=== PATIENT | female | born 1995 | race Caucasian/White ===

== ENCOUNTER 2016-07-18 18:31 | Emergency (ER) | payer OTHER ==
[2016-07-18 18:45] VITALS: RESP 18
--- NOTE | 2016-07-18 19:00 | EDPHY ---
H & P Stated Complaint: Sent by [facility] [place], continued abdominal pain, continued weight loss since 05/13 HPI/ROS: CHIEF COMPLAINT: Abdominal pain HISTORY OF PRESENT ILLNESS: The patient is a 20 year old female who presents to the emergency department with lower abdominal cramping as well as ongoing diarrhea. The patient has had persistent nonbloody diarrhea since April. She has about 4-5 episodes per day with intermittently has solid stools. Over the past 2 months she has lost 20 pounds. She usually has associated cramping with diarrhea that is moderate in nature. However today she woke up with more severe abdominal pain that has since remained constant. She was seen at Urgent Care today and had lab work and ultrasound done. She has a GI consult scheduled for next week, but couldn't wait due to severity of pain today. She took Prilosec at 5:30 pm and Zantac this morning. REVIEW OF SYSTEMS: A ten point review of systems was performed and is negative with the exception of the items mentioned in the HPI. Source: Patient, Family, Old records Exam Limitations: No limitations - Personal History LMP (Females 10-55): Over 28 Days Ago Current Tetanus/Diphtheria Vaccine: Yes Current Tetanus Diphtheria and Acellular Pertussis (TDAP): Yes - Medical/Surgical History Hx Asthma: No Hx Chronic Respiratory Disease: No Hx Diabetes: No Hx Cardiac Disease: No Hx Renal Disease: No Hx Cirrhosis: No Hx Alcoholism: No Hx HIV/AIDS: No Hx Splenectomy or Spleen Trauma: No Other PMH: None - Social History Smoking Status: Never smoked Additional Social History: Graduated from college last year. 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 - Physical Exam Exam: General Appearance: Alert. Vital signs reviewed. HR 106 at triage.. Eyes: Pupils equal and round, no conjunctival injection, no discharge. Anicteric. ENT, Mouth: Mucous membranes are moist, no oropharyngeal erythema or edema. Neck: No lymphadenopathy, supple. Respiratory: Lungs are clear to auscultation; no wheezes, rales, or rhonchi. Cardiovascular: Mildly tachycardic at time of my exam; no murmur, rub, or gallop. Gastrointestinal: Abdomen is soft with mild tenderness in both lower quadrants , no guarding, no masses or organomegaly, bowel sounds normal. Skin: Warm and dry, no rashes on exposed skin, normal color. Back: Nontender to palpation over the thoracolumbar spine. No CVAT. Extremities: No lower extremity edema, no calf tenderness or swelling. Neurological: Alert and oriented. Moving all four extremities easily and equally. Psychiatric: Normal affect. Constitutional: Initial Vital Signs Temperature (C) 36.9 C 07/18/16 18:42 Heart Rate 106 H 07/18/16 18:42 Respiratory Rate 18 07/18/16 18:42 Blood Pressure 110/77 07/18/16 18:42 O2 Sat (%) 98 07/18/16 18:42 O2 Delivery Mode Room Air Allergies/Adverse Reactions: No Known Allergies Allergy (Unverified 07/18/16 18:42) Home Medications: Medication Instructions Recorded Hydrocodone/APAP 5/325 [[place] 1 - 2 tab PO Q4 PRN #10 tab 07/18/16 5/325 (RX)] Ondansetron Odt [Zofran Odt 4 mg 4 mg PO Q4 PRN #10 tab 07/18/16 (RX)] Medical Decision Making ED Course/Re-evaluation: IV was established, the patient received 1L normal saline and 4mg Zofran. I reviewed the patient's lab work and US from Urgent Care today. 2000: I reevaluated the patient and discussed findings. She continues to have pain. She received 50mcg Fentanyl IV for pain with subsequent pain relief. She has had laboratory and radiographic evaluation today with nothing to suggest appendicitis (no fever and nl WBC without focal RLQ tenderness), ovarian torsion, ovarian cyst, PID, or ectopic . I do not feel that these studies need to be repeated. She has an ongoing problem and understands that a diagnosis is unlikely to result from [facility]. She was unable to produce a stool sample but has a collection kit provided to her at [facility] [place] [facility]. Diagnostic possibilities concerning her diarrhea include Crohns, infectious colitis, and functional diarrhea. I am suggesting that she try to move up her appointment with GI. We reviewed the danger signs that should prompt immediate re-evaluation. She was re-hydrated with two liters of IV NS and received some pain relief with fentanyl. She is given RX for small quantity of [place] but thinks that she is unlikely to use it. - Data Points Medications Given: Discontinued Medications Hydrocodone Bitart/Acetaminophen ([place] 5/325mg Prepack#6) 1 btl TAKEHOME EDNOW ONE Stop: 07/18/16 21:02 Last Admin: 07/18/16 21:02 Dose: 1 btl Fentanyl (Sublimaze) 50 mcg IVP EDNOW ONE Stop: 07/18/16 20:07 Last Admin: 07/18/16 20:19 Dose: 50 mcg Sodium Chloride (Ns) 1,000 mls @ 0 mls/hr IV ONCE ONE PRN Reason: Wide Open Stop: 07/18/16 19:20 Last Admin: 07/18/16 19:26 Dose: 1,000 mls Ondansetron HCl (Zofran) 4 mg IVP EDNOW ONE Stop: 07/18/16 19:20 Last Admin: 07/18/16 19:26 Dose: 4 mg Ondansetron HCl (Zofran Odt 4 Mg Prepack#2) 1 btl TAKEHOME EDNOW ONE Stop: 07/18/16 21:02 Last Admin: 07/18/16 21:10 Dose: 1 btl Departure - Departure Disposition: Home, Routine, Self-Care Clinical Impression: Diarrhea Qualifiers: Diarrhea type: unspecified type Qualified Code(s): R19.7 - Diarrhea, unspecified Abdominal pain Qualifiers: Abdominal location: lower abdomen, unspecified Qualified Code(s): R10.30 - Lower abdominal pain, unspecified Condition: Good Instructions: Hydrocodone/Acetaminophen (By mouth), Ondansetron (By mouth), Acute Diarrhea (ED), Abdominal Pain (ED) Additional Instructions: 1. Call GI of the [facility] tomorrow to discuss moving the appointment forward. 2. Take [place] as needed for severe pain. 3. Take Zofran as directed for nausea and vomiting. 4. Continue your Prilosec as prescribed. Adult Pain & Fever Control: We recommend Acetaminophen (Tylenol) and Ibuprofen (Motrin,Advil) for pain and fever control. When fever is high or pain severe, both drugs can be used at the same time, but at different intervals. Please note the time differences. Your dose is: Acetaminophen 450mg every 4 to 6 hours Ibuprofen 400mg every 4 hours with food Note: do not take Acetaminophen with Hydrocodone (Vicodin, Lortab) or Oycodone (Percocet). These medications also contain Acetaminophen. No more than 3000mg of Acetaminophen should be taken in 24 hours (for an adult). IF you take tylenol with Vicodin you should keep track of the tylenol doses that you are taking so that you don't exceed 3000 mg in 24 hours. If you develop new or concerning symptoms--fever, severe intractable pain, vomiting--please be re-evaluated. Referrals: Teena Hartman PA [Primary Care Provider] - As per Instructions Prescriptions: Hydrocodone/APAP 5/325 [[place] 5/325 (RX)] 1 - 2 tab PO Q4 PRN #10 tab PRN Reason: pain Ondansetron Odt [Zofran Odt 4 mg (RX)] 4 mg PO Q4 PRN #10 tab PRN Reason: nausea Report Scribed for: Danisha Reich Report Scribed by: Pili Beckham Date of Report: 07/18/16 Time of Report: 19:16 Physician Review and Approval Statement: 07/18/16 19:00 Portions of this note were transcribed by the medical education manager. I, Dr. Danisha Reich, personally performed the history, physical exam, and medical decision- making; and confirmed the accuracy of the information in the transcribed note.
[2016-07-18] MEDS ORDERED: ONDANSETRON 4 MG/2 ML VIAL IVP ONE (19:19)
[2016-07-18] MEDS ORDERED: NS 1,000 ML IV ONE (19:19)
[2016-07-18] MEDS ORDERED: fentaNYL 100 MCG/2 ML INJ IVP ONE (20:06)
[2016-07-18] MEDS ORDERED: HYDROCOD/APAP 5/325 PREPACK#6 BTL TAKEHOME ONE (21:01)
[2016-07-18] MEDS ORDERED: ONDANSETRON 4MG PREPACK#2 BTL TAKEHOME ONE (21:01)
[2016-07-18 21:25] VITALS: BP 110/64; PULSE 103; TEMP 98.8; O2SAT 99
== END 2016-07-18 21:23 | disposition home or self-care (01) ==
DX: R10.30 Lower abdominal pain, unspecified (principal); R19.7 Diarrhea, unspecified
CPT/HCPCS: 96374; J2405; J3010

== ENCOUNTER → 2016-07-18 | Outpatient (CLI) | payer OTHER | LOC: BMCIMAGING 12:44 | PROVIDERS: ATTEND Family Medicine | DX: K80.20 Calculus of gallbladder without cholecystitis without obstruction (principal); R10.84 Generalized abdominal pain; R19.7 Diarrhea, unspecified ==

== ENCOUNTER → 2016-11-08 | Outpatient (CLI) | payer OTHER | LOC: FIMAGING 08:53 | PROVIDERS: ATTEND Internal Medicine | DX: R63.0 Anorexia (principal); K82.8 Other specified diseases of gallbladder | CPT/HCPCS: 78227; A9537 ==

== ENCOUNTER 2016-12-26 05:45 | Day surgery (SDC) | payer OTHER ==
[2016-12-26] MEDS ORDERED: cefOXitin SODIUM 2 GM in D5W 100 ML IV ONE (06:18)
[2016-12-26] MEDS ORDERED: LR 1,000 ML IV ONE (06:20)
[2016-12-26] MEDS ORDERED: LIDOCAINE 1% 2 ML INJ ID PRN (06:20)
[2016-12-26] MEDS ORDERED: fentaNYL 100 MCG/2 ML INJ ONE ×2 (06:53→08:06)
[2016-12-26] MEDS ORDERED: PROPOFOL/EMULSION 500 MG/50 ML BOTTLE IV ONE (06:53)
[2016-12-26] MEDS ORDERED: DEXAMETHASONE 4 MG/ML VIAL ONE ×2 (06:56)
[2016-12-26] MEDS ORDERED: ONDANSETRON 4 MG/2 ML VIAL ONE ×3 (06:56→08:39)
[2016-12-26] MEDS ORDERED: HEPARIN 1000 UNIT/1 ML MDV ONE (06:56)
[2016-12-26] MEDS ORDERED: BUPIVACAINE 0.5% 30 ML SDV ONE (06:56)
[2016-12-26] MEDS ORDERED: ROCURONIUM 50 MG/5 ML VIAL ONE (06:57)
[2016-12-26] MEDS ORDERED: SUGAMMADEX SODIUM 200 MG/2 ML VIAL IVP ONE (06:57)
[2016-12-26] MEDS ORDERED: LIDOCAINE 2% 100 MG/5 ML SYR ONE (06:57)
[2016-12-26] MEDS ORDERED: ceFAZolin 1 GM/5 ML SYR ONE (06:57)
[2016-12-26] MEDS ORDERED: NALOXONE HCL 0.4 MG/ML INJ IVP PRN (07:00)
[2016-12-26] MEDS ORDERED: MIDAZOLAM 2 MG/2 ML VIAL IVP ONE (07:00)
--- NOTE | 2016-12-26 07:20 | PDHPUP ---
History & Physical Update H&P update statement: This history and physical update is based on an assessment of the patient which was completed after admission or registration (within 24 hours), but prior to the surgery/procedure. H&P update: H&P reviewed & patient examined, no change in patient's condition since H&P completed
[2016-12-26] MEDS ORDERED: ONDANSETRON 4 MG/2 ML VIAL IVP PRN ×2 (08:07→08:26)
[2016-12-26] MEDS ORDERED: MEPERIDINE 25 MG/ML SYR IVP PRN (08:07)
[2016-12-26] MEDS ORDERED: ACETAMINOPHEN 500 MG TAB PO PRN (08:07)
[2016-12-26] MEDS ORDERED: LR 500 ML IV PRN (08:07)
[2016-12-26] MEDS ORDERED: HYDROmorphONE/DILAUDID 1 MG/ML SYR IVP PRN ×2 (08:07→08:26)
[2016-12-26] MEDS ORDERED: fentaNYL 100 MCG/2 ML INJ IVP PRN (08:07)
[2016-12-26] MEDS ORDERED: KETOROLAC 30 MG/1 ML SDV ONE ×2 (08:07)
[2016-12-26] MEDS ORDERED: OXYCODONE/APAP 5/325 TAB PO PRN (08:07)
--- NOTE | 2016-12-26 08:22 | POSTOPPROG ---
Post Op Note Date of Operation: 12/26/16 Surgeon: Chidi Lopez Anesthesiologist: [place] Anesthesia: GET(General Endotracheal) Pre-op Diagnosis: cholelithiasis and chronic cholecystitis Post-op Diagnosis: same Indication: pain and nausea Procedure: lap choley Findings: small stones, small ducts, [id number] to gb Inf/Abcess present in the surg proc area at time of surgery?: No Depth: Organ Space EBL: Minimal Complications: 0 Specimen(s): gallbladder
[2016-12-26] MEDS ORDERED: HYDROCODONE/APAP 5/325 TAB PO PRN (08:26)
[2016-12-26] MEDS ORDERED: D5W 1/2 NS W/ 20 KCl/L 1,000 ML IV SCH (08:30)
--- NOTE | 2016-12-26 08:44 | PDANEPAE ---
ANE Past Medical History - Cardiovascular History Hx Hypertension: No Hx Arrhythmias: Yes Hx Chest Pain: No Hx Coronary Artery / Peripheral Vascular Disease: No Hx CHF / Valvular Disease: No Hx Palpitations: No Cardiovascular History Comment: irregular ekg. rbbb. worked up by [facility] - Pulmonary History Hx COPD: No Hx Asthma/Reactive Airway Disease: No Hx Recent Upper Respiratory Infection: No Hx Oxygen in Use at Home: No Hx Sleep Apnea: No Sleep Apnea Screening Result - Last Documented: Negative - Neurologic History Hx Cerebrovascular Accident: No Hx Seizures: No Hx Dementia: No - Endocrine History Hx Diabetes: No - Renal History Hx Renal Disorders: No - Liver History Hx Hepatic Disorders: No - Neurological & Psychiatric Hx Hx Neurological and Psychiatric Disorders: No - Cancer History Hx Cancer: No - Congenital Disorder History Hx Congenital Disorders: No - GI History Hx Gastrointestinal Disorders: Yes Gastrointestinal History Comment: reflux. abd pain. diarrhea currently - Other Health History Other Health History: none - Chronic Pain History Chronic Pain: No - Surgical History Prior Surgeries: pe tubes as child. wisdom teeth removed. egd's ANE Review of Systems - Exercise capacity METS (RN): 4 METS - Systems Cardiac: Reports: other (Asymptomatic tiny PFO) ANE Patient History - Allergies Allergies/Adverse Reactions: No Known Allergies Allergy (Verified 12/22/16 12:33) - Home Medications Home Medications: Control Pill 12/22/16 [Last Taken 12/25/16 09:00] Nexium 24Hr 12/22/16 [Last Taken 12/26/16 00:30] - NPO status NPO Since - Liquids (Date): 12/25/16 NPO Since - Liquids (Time): 19:45 NPO Since - Solids (Date): 12/25/16 NPO Since - Solids (Time): 19:30 - Smoking Hx Smoking Status: Never smoked - Family Anes Hx Family Hx Anesthesia Complications: none ANE Labs/Vital Signs - Vital Signs Blood Pressure: 111/73 Heart Rate: 58 Respiratory Rate: 18 O2 Sat (%): 97 Height: 175.26 cm Weight: 56.699 kg ANE Physical Exam - Airway Neck exam: FROM Mallampati Score: Class 1 Mouth exam: normal dental/mouth exam - Pulmonary Pulmonary: no respiratory distress, no rales or rhonchi, clear to auscultation - Cardiovascular Cardiovascular: regular rate and rhythym, no murmur, rub, or gallop - ASA Status ASA Status: II ANE Anesthesia Plan Anesthesia Plan: general endotracheal anesthesia
--- NOTE | 2016-12-26 08:45 | POSTANESTH ---
Post Anesthetic Evaluation Cardiovascular Status: Normal, Stable, Similar to Pre-Op Cond Respiratory Status: Normal, Stable, Similar to Pre-op Cond. Level of Consciousness/Mental Status: Can Participate in Eval, Alert and Oriented Pain Control: Adequate, Prn Tx Ordered Nausea/Vomiting Control: Adequate, Prn Tx Ordered Complications Possibly Related to Anesthesia: None Noted
[2016-12-26] MEDS ORDERED: PROMETHAZINE HCL 25 MG/ML INJ ONE (08:52)
[2016-12-26] MEDS: PROMETHAZINE HCL 25 MG/ML INJ IVP PRN ×2 (08:55→09:26)
[2016-12-26 09:18] VITALS: TEMP 97
[2016-12-26] MEDS ORDERED: CITRIC ACID/SODIUM CITRATE 30 ML UDCUP PO ONE (09:46)
[2016-12-26 09:51] VITALS: RESP 13
[2016-12-26] MEDS ORDERED: CEFAZOLIN 1 GM/DEXTROSE/50 ML BAG IV ONE (09:56)
[2016-12-26 10:33] VITALS: BP 117/73; PULSE 61; O2SAT 99
[2016-12-26] MEDS ORDERED: KETOROLAC 15 MG/1 ML SDV IVP SCH (12:00)
--- NOTE | 2016-12-27 08:02 | GOP ---
[f rep st] OPERATIVE REPORT DATE OF OPERATION: 12/26/2016 SURGEON: Chidi Lopez MD TAKE AWAY WORKER: None. ANESTHESIOLOGIST: Dr. Barrientos. PREOPERATIVE DIAGNOSIS: Symptomatic cholelithiasis, cholecystitis. POSTOPERATIVE DIAGNOSIS: Symptomatic cholelithiasis, cholecystitis. PROCEDURE PERFORMED: Laparoscopic cholecystectomy. FINDINGS: Patient was found to have adhesions to the gallbladder. The gallbladder was soft. Stone s were present but small and ducts were small. ESTIMATED BLOOD LOSS: Minimal. DESCRIPTION OF PROCEDURE: Patient was taken to the operating room, where she received satisfactory general endotracheal anesthesia by Dr. Barrientos. She was prepped and draped in the usual sterile fashi on in the supine position. An infraumbilical incision was made. A Veress needle was inserted. Pneumoperitoneum was establishe d. Trocar was introduced. Laparoscope was introduced. Good visualization was obtained. Three oth er trocars were placed in the upper abdomen under direct vision. The gallbladder was elevated up. Adhesions were taken down. The cystic triangle was carefully exposed. The cystic duct was dissecte d free. Cystic artery was also dissected free. A good clear view was obtained. Both structures we re multiply hemoclipped and divided with care to avoid injury to the common bile duct. The peritone um of the gallbladder was incised. The gallbladder was dissected free from the bed and hepatic patric a and extracted through the upper midline port site. Hemostasis was assured. Trocars were removed under direct vision. Trocar sites were closed with 0 Vicryl for the fascia and 4-0 Monocryl subcuti cular stitch for the skin. All wounds were infiltrated with 0.5% Marcaine. She was taken to the re covery room in good condition. COMPLICATIONS: None. /[id number]/MODL
== END 2016-12-26 10:48 | disposition home or self-care (01) ==
LOC: FSGY 05:45 → UNDOADMOB 08:29 → FSGY 10:48
PROVIDERS: ATTEND Surgery
PROC: 0FT44ZZ Resection of Gallbladder, Percutaneous Endoscopic Approach (ICD-10-PCS; principal; 2016-12-26 07:15)
DX: K80.10 Calculus of gallbladder with chronic cholecystitis without obstruction (principal)
CPT/HCPCS: J0690; J0694; J1100; J1885; J2001; J2250; J2405; J2550; J2704; J3010

== ENCOUNTER 2016-12-28 11:19 | Inpatient (IN) | payer OTHER ==
[2016-12-28] MEDS ORDERED: NS 1,000 ML IV ONE (11:58)
[2016-12-28] MEDS ORDERED: HYDROmorphONE/DILAUDID 1 MG/ML SYR IVP ONE (11:58)
[2016-12-28] MEDS ORDERED: ONDANSETRON 4 MG/2 ML VIAL IVP ONE (11:58)
--- NOTE | 2016-12-28 12:01 | EDPHY ---
H & P Time Seen by Provider: 12/28/16 11:50 HPI/ROS: CHIEF COMPLAINT: Abdominal pain HISTORY OF PRESENT ILLNESS: Patient had cholecystectomy on December 26 and went home on Monday. She has been eating and drinking until this morning when she developed severe upper abdominal pain followed by nausea and vomiting. Does not radiate to the back. Not associated with diarrhea. Much worse with any movement or palpation of her belly. Symptoms severe and not helped by Maybell. REVIEW OF SYSTEMS: Eye: no change in vision ENT: no sore throat Cardiac: no chest pain or syncope Pulmonary: no cough or SOB Abdomen: HPI Musculoskeletal: no back pain Skin: No drainage or redness on the incisions Neuro: no headache Constitutional: no fever : no urinary symptoms A comprehensive 10 point review of systems is otherwise negative aside from elements mentioned in the history of present illness. PAST MEDICAL HISTORY: Cholecystectomy Social history: Here with her mother and a friend of the family General Appearance: Alert and conversant, cooperative. Eyes: No scleral icterus. ENT, Mouth: Slightly dry mucous membranes. Respiratory: Normal respiratory effort, breath sounds equal, lungs are clear to auscultation. Cardiovascular: Regular rate and rhythm. Gastrointestinal: Epigastric and right upper quadrant tenderness. Neurological: Alert and oriented x3. Normally conversant. Face symmetric, normal movement and sensation in all extremities. Skin: Steri-Strips in place, no redness or drainage from the wounds. Musculoskeletal: No peripheral edema and no joint swelling. Psychiatric: Not agitated. Emergency Department course/MDM: Dilaudid 1 mg IV, Zofran 4 mg IV, abdominal pelvis CT scanning to evaluate for possible postoperative complication. 1240: CT per Nirmala shows some free fluid and free air. Question dilated bile ducts. Otherwise normal postoperative. Discussed with Dr. Lopez and discussed with the patient and her mother. Given IV Toradol [address] Lopez request. HIDA scan ordered and admission to the hospital for pain control. Smoking Status: Never smoked Constitutional: Initial Vital Signs Temperature (C) 36.3 C 12/28/16 11:32 Heart Rate 69 12/28/16 11:32 Respiratory Rate 17 12/28/16 11:32 Blood Pressure 111/76 12/28/16 11:32 O2 Sat (%) 97 12/28/16 11:32 O2 Delivery Mode Room Air Allergies/Adverse Reactions: No Known Allergies Allergy (Verified 12/28/16 11:29) Home Medications: Medication Instructions Recorded Esomeprazole Magnesium [Nexium] 20 mg PO DAILY@0800 12/22/16 Levonorgestrel-Ethin Estradiol 1 each PO DAILY 12/22/16 [Quasense 0.15-0.03 mg Tablet] Hydrocodone/APAP 5/325 [[place]bell 0.5 tab PO DAILY PRN 12/28/16 5/325 (*)] Ondansetron Odt [Zofran Odt 4 mg 4 mg PO Q4 PRN 12/28/16 (*)] Simethicone [Gas-X] 125 mg PO DAILY 12/28/16 Medical Decision Making - Diagnostics Imaging Results: Imaging Impressions Abdomen CT 12/28/16 11:59 Impression: 1. Intra-abdominal free air and free fluid may well be postoperative. If there is clinical concern for a bile leak, then consider a nuclear medicine HIDA scan. 2. Proximal colonic constipation. 3. Distended urinary bladder. Results called and discussed with SAMUEL MCNEILL, at 12/28/2016 12:44 General information for patients regarding this examination can be found at [email or web address]. If you have questions or comments about this report, please contact me at (hospital) or [phone] (cell). Differential Diagnosis: Differential considered including but not limited to bile leak, abdominal abscess, postoperative bleeding, postoperative pain, intestinal perforation. Consult/Admit Bed Type: [place] [address] - Data Points Laboratory Results: Laboratory Results 12/28/16 11:47 12/28/16 11:47 12/28/16 12/28/16 12/28/16 11:57 11:47 11:47 WBC RBC Hgb POC Hgb 12.9 gm/dL gm/dL (12.6-16.3) Hct POC Hct 38 % % (38-47) MCV MCH MCHC RDW Plt Count MPV Neut % (Auto) Lymph % (Auto) Chaves % (Auto) Eos % (Auto) Baso % (Auto) Nucleat RBC Rel Count Absolute Neuts (auto) Absolute Lymphs (auto) Absolute Monos (auto) Absolute Eos (auto) Absolute Basos (auto) Absolute Nucleated RBC Immature Gran % Immature Gran # POC Sodium 142 mEq/L mEq/L (134-144) Sodium 142 mEq/L mEq/L (134-144) POC Potassium 3.6 mEq/L mEq/L (3.3-5.0) Potassium 3.8 mEq/L mEq/L (3.5-5.2) POC Chloride 104 mEq/L mEq/L (97-110) Chloride 108 mEq/L mEq/L (97-110) Carbon Dioxide 20 mEq/l L mEq/l (22-31) Anion Gap 14 mEq/L mEq/L (8-16) POC BUN 8 mg/dL mg/dL (7-23) BUN 9 mg/dL mg/dL (7-23) Creatinine 0.8 mg/dL mg/dL (0.6-1.0) POC Creatinine 0.8 mg/dL mg/dL (0.6-1.0) Estimated GFR > 60 Glucose 96 mg/dL mg/dL (70-100) POC Glucose 100 mg/dL mg/dL (70-100) Calcium 10.0 mg/dL mg/dL (8.5-10.4) Total Bilirubin 1.1 mg/dL mg/dL (0.1-1.4) Conjugated Bilirubin 0.5 mg/dL mg/dL (0.0-0.5) Unconjugated Bilirubin 0.6 mg/dL mg/dL (0.0-1.1) AST 283 IU/L H IU/L (14-46) ALT 310 IU/L H IU/L (9-52) Alkaline Phosphatase 95 IU/L IU/L (38-126) Total Protein 7.4 g/dL g/dL (6.3-8.2) Albumin 4.4 g/dL g/dL (3.5-5.0) Lipase 173.0 IU/L IU/L (23-300) Beta HCG, Qual NEGATIVE 12/28/16 11:47 WBC 9.13 10^3/uL 10^3/uL (3.80-9.50) RBC 4.66 10^6/uL 10^6/uL (4.18-5.33) Hgb 13.4 g/dL g/dL (12.6-16.3) POC Hgb Hct 40.4 % % (38.0-47.0) POC Hct MCV 86.7 fL fL (81.5-99.8) MCH 28.8 pg pg (27.9-34.1) MCHC 33.2 g/dL g/dL (32.4-36.7) RDW 11.9 % % (11.5-15.2) Plt Count 287 10^3/uL 10^3/uL (150-400) MPV 10.6 fL fL (8.7-11.7) Neut % (Auto) 76.9 % H % (39.3-74.2) Lymph % (Auto) 16.3 % % (15.0-45.0) Chaves % (Auto) 6.0 % % (4.5-13.0) Eos % (Auto) 0.1 % L % (0.6-7.6) Baso % (Auto) 0.4 % % (0.3-1.7) Nucleat RBC Rel Count 0.0 % % (0.0-0.2) Absolute Neuts (auto) 7.01 10^3/uL H 10^3/uL (1.70-6.50) Absolute Lymphs (auto) 1.49 10^3/uL 10^3/uL (1.00-3.00) Absolute Monos (auto) 0.55 10^3/uL 10^3/uL (0.30-0.80) Absolute Eos (auto) 0.01 10^3/uL L 10^3/uL (0.03-0.40) Absolute Basos (auto) 0.04 10^3/uL 10^3/uL (0.02-0.10) Absolute Nucleated RBC 0.00 10^3/uL 10^3/uL (0-0.01) Immature Gran % 0.3 % % (0.0-1.1) Immature Gran # 0.03 10^3/uL 10^3/uL (0.00-0.10) POC Sodium Sodium POC Potassium Potassium POC Chloride Chloride Carbon Dioxide Anion Gap POC BUN BUN Creatinine POC Creatinine Estimated GFR Glucose POC Glucose Calcium Total Bilirubin Conjugated Bilirubin Unconjugated Bilirubin AST ALT Alkaline Phosphatase Total Protein Albumin Lipase Beta HCG, Qual Medications Given: Discontinued Medications Hydromorphone HCl (Dilaudid) 1 mg IVP EDNOW ONE Stop: 12/28/16 11:59 Last Admin: 12/28/16 12:05 Dose: 1 mg Sodium Chloride (Ns) 1,000 mls @ 0 mls/hr IV EDNOW ONE; Wide Open PRN Reason: Protocol Stop: 12/28/16 11:59 Last Admin: 12/28/16 12:05 Dose: 1,000 mls Ketorolac Tromethamine (Toradol) 15 mg IVP EDNOW ONE Stop: 12/28/16 12:55 Last Admin: 12/28/16 13:10 Dose: 15 mg Ondansetron HCl (Zofran) 4 mg IVP EDNOW ONE Stop: 12/28/16 11:59 Last Admin: 12/28/16 12:06 Dose: 4 mg Point of Care Test Results: 12/28/16 11:57 POC Sodium 142 POC Potassium 3.6 POC Chloride 104 POC BUN 8 POC Creatinine 0.8 POC Glucose 100 Departure - Departure Disposition: [facility] Inpatient Acute Clinical Impression: Abdominal pain Qualifiers: Abdominal location: upper abdomen, unspecified Qualified Code(s): R10.10 - Upper abdominal pain, unspecified Condition: Good
[2016-12-28 12:03] LABS: % IMMATURE GRANULYOCYTES 0.3 % (0.0-1.1); ABSOLUTE IMMATURE GRANULOCYTES 0.03 10^3/uL (0.00-0.10); ADD DIFF? NO; ADD MORPH? NO; ADD SCAN? NO; ATYPICAL LYMPHOCYTE FLAG 10 (0-99); FRAGMENT RBC FLAG 0 (0-99); HEMATOCRIT 40.4 % (38.0-47.0); HEMOGLOBIN 13.4 g/dL (12.6-16.3); LEFT SHIFT FLG 0 (0-99); LIPEMIA HEMOLYSIS FLAG 80 (0-99); MEAN CELL HEMOGLOBIN 28.8 pg (27.9-34.1); MEAN CELL HEMOGLOBIN CONCENTR. 33.2 g/dL (32.4-36.7); MEAN CELL VOLUME 86.7 fL (81.5-99.8); MEAN PLATELET VOLUME 10.6 fL (8.7-11.7); PLATELET CLUMPS FLAG 10 (0-99); PLATELET COUNT 287 10^3/uL (150-400); RED BLOOD CELL COUNT 4.66 10^6/uL (4.18-5.33); RED CELL DISTRIBUTION WIDTH 11.9 % (11.5-15.2)
[2016-12-28] MEDS ORDERED: IOPAMIDOL (ISOVUE-300) 100 ML BTL ONE (12:08)
[2016-12-28 12:21] LABS: ALANINE AMINOTRANSFERASE 310 IU/L (9-52); ALBUMIN 4.4 g/dL (3.5-5.0); ALKALINE PHOSPHATASE 95 IU/L (38-126); ANION GAP 14 mEq/L (8-16); ASPARTATE AMINOTRANSFERASE 283 IU/L (14-46); BILIRUBIN,TOTAL 1.1 mg/dL (0.1-1.4); BILIRUBIN-CONJUGATED 0.5 mg/dL (0.0-0.5); BILIRUBIN-UNCONJUGATED 0.6 mg/dL (0.0-1.1); CARBON DIOXIDE 20 mEq/l (22-31); CHLORIDE 108 mEq/L (97-110); CREATININE 0.8 mg/dL (0.6-1.0); GLOMERULAR FILTRATION RATE > 60; GLUCOSE 96 mg/dL (70-100); POTASSIUM 3.8 mEq/L (3.5-5.2); SODIUM 142 mEq/L (134-144); TOTAL PROTEIN 7.4 g/dL (6.3-8.2)
[2016-12-28] MEDS ORDERED: KETOROLAC 30 MG/1 ML SDV IVP ONE (12:54)
[2016-12-28] MEDS ORDERED: HYDROCODONE/APAP 5/325 TAB PO PRN (13:58)
[2016-12-28] MEDS: NS W/ 20 KCl/L 1,000 ML IV SCH (14:44)
--- NOTE | 2016-12-28 15:02 | GHP ---
[f rep st] HISTORY AND PHYSICAL DATE OF ADMISSION: 12/28/2016 CHIEF COMPLAINT: Epigastric abdominal pain with nausea. HISTORY OF PRESENT ILLNESS: The patient is a healthy young 21-year-old woman, aside from some reflu x complaints that she controls with Nexium, who is postoperative day 2 from an uneventful laparoscop ic cholecystectomy for cholelithiasis and biliary dyskinesia with an ejection fraction of 16%. Post operatively, she had some nausea which caused her to avoid use of narcotic pain medicines and Advil. She has used a little Tylenol and half doses of her Harts. She has had epigastric abdominal pain since the surgery which has since moved down to her pelvis. She was eating simple things like rose hies and toast. She has retched, but not actually vomited. Her last normal bowel movement was the morning of her surgery, and she reports that as being slightly small. She denies fevers, chills or night sweats. She comes to the ER today because her pain seems to be worsening. Since being in the emergency department, she has had a CT scan of her abdomen and pelvis which shows some intraabdominal free air and free fluid consistent with her postoperative state. She was found to have some colonic constipation and a distended bladder. Her mom says she has been urinating wit hout a problem. Labs show a normal white count and no signs of anemia with elevated liver function tests. PAST MEDICAL HISTORY: Reflux, cholelithiasis and biliary dyskinesia as described above. MEDICINES: Nexium and recent use of Zofran. ALLERGIES: No known drug allergies. SOCIAL HISTORY: She is a nonsmoker. She lives in [place]. She has minimal alcohol intake. She wo rks as a mortgage lender and she is accompanied by her mom who does research analysis. FAMILY HISTORY: Noncontributory. REVIEW OF SYSTEMS: Negative aside from listed in HPI, a 10-point review is done. PHYSICAL EXAM: GENERAL: A 21-year-old female, alert and oriented x3, in no acute distress. HEENT: Normocephalic, atraumatic. No scleral icterus. CHEST: Clear to auscultation bilaterally with no accessary muscle use or work of breathing. CARDIAC: Regular rate and rhythm. ABDOMEN: Soft. In cisions are clean, dry, and intact. Positive bowel sounds. Tenderness in the right upper and lower quadrants. No rebound or guarding. EXTREMITIES: Warm, dry without edema. IMPRESSION: This is a 21-year-old female with abdominal pain and nausea post uneventful laparoscopi c cholecystectomy. Rule out biliary leak. Rule out constipation. PLAN: Plan will be to admit the patient for observation and supportive care. Will make her n.p.o. for now. We have ordered a HIDA scan. I have also ordered some pain medicines and antiemetics for supportive care. If her HIDA scan is negative, then we will likely start with some cathartics. If it is abnormal, she may need GI consult and/or ERCP. Will discuss with Dr. Lopez who will also see the patient today and is aware of her presence in the emergency department. /[id number]/MODL
[2016-12-28 18:51] LABS: AMYLASE 46 IU/L (30-110)
[2016-12-28] MEDS: HYDROmorphONE/DILAUDID 1 MG/ML SYR IVP PRN ×2 (19:01→20:45)
[2016-12-28] MEDS: ONDANSETRON 4 MG/2 ML VIAL IVP PRN (19:01)
[2016-12-28] MEDS ORDERED: HYDROmorphONE/DILAUDID 6 MG/30 ML PCA IV PRN (19:23)
[2016-12-28] MEDS ORDERED: NALOXONE HCL 0.4 MG/ML INJ IVP PRN (19:23)
--- NOTE | 2016-12-28 19:30 | SOAPPROG ---
SOAP Progress Note Assessment/Plan: Assessment: 24 HRS SP LAP CHANTELL/ CO RUQ PAIN/ AFEBRILE/ NONICTERIC/ABDOMEN IS SOFT WITH BOWEL SOUNDS, NONDISTENDED LFTs ELEVATED BUT BILI AND ALKPHOS OK HIDA SUGGESTS SMALL LEAK Plan:RECHECK LABS/ GI CONSULT/ POSSIBLE ERCP 12/28/16 19:27 Objective: Vital Signs Temp Pulse Resp BP Pulse Ox 36.7 C 51 L 18 129/94 H 97 12/28/16 14:19 12/28/16 14:19 12/28/16 14:19 12/28/16 14:19 12/28/16 14:19 12/27/16 12/28/16 12/29/16 05:59 05:59 05:59 Intake Total 1000 Output Total 1000 Balance 0 ICD10 Worksheet Patient Problems: Problems Problem Status Onset Abdominal pain Acute Diarrhea Acute
[2016-12-28] MEDS: ERTAPENEM 1 GM in NS 100 ML IV SCH (20:13)
[2016-12-28] MEDS: KETOROLAC 15 MG/1 ML SDV IVP SCH (20:21)
[2016-12-28] MEDS: ONDANSETRON DISINTEGRATING 4 MG TAB PO PRN (20:46)
[2016-12-28] MEDS ORDERED: POLYETHYLENE GLYCOL 3350 17 GM PKT PO PRN (21:00)
[2016-12-28] MEDS: DOCUSATE SODIUM 100 MG CAP PO SCH (22:10)
[2016-12-28] MEDS: PANTOPRAZOLE SODIUM 40 MG in NS 100 ML IV SCH (22:10)
[2016-12-29] MEDS: ONDANSETRON 4 MG/2 ML VIAL IVP PRN ×4 (00:23→19:38)
[2016-12-29] MEDS: KETOROLAC 15 MG/1 ML SDV IVP SCH ×4 (01:44→19:38)
[2016-12-29 04:49] LABS: % IMMATURE GRANULYOCYTES 0.6 % (0.0-1.1); ABSOLUTE IMMATURE GRANULOCYTES 0.05 10^3/uL (0.00-0.10); ADD DIFF? NO; ADD MORPH? NO; ADD SCAN? NO; ATYPICAL LYMPHOCYTE FLAG 10 (0-99); FRAGMENT RBC FLAG 0 (0-99); HEMATOCRIT 33.5 % (38.0-47.0); HEMOGLOBIN 11.1 g/dL (12.6-16.3); LEFT SHIFT FLG 0 (0-99); LIPEMIA HEMOLYSIS FLAG 80 (0-99); MEAN CELL HEMOGLOBIN 28.8 pg (27.9-34.1); MEAN CELL HEMOGLOBIN CONCENTR. 33.1 g/dL (32.4-36.7); MEAN CELL VOLUME 86.8 fL (81.5-99.8); MEAN PLATELET VOLUME 10.5 fL (8.7-11.7); PLATELET CLUMPS FLAG 0 (0-99); PLATELET COUNT 222 10^3/uL (150-400); RED BLOOD CELL COUNT 3.86 10^6/uL (4.18-5.33); RED CELL DISTRIBUTION WIDTH 11.9 % (11.5-15.2)
[2016-12-29 05:06] LABS: ALANINE AMINOTRANSFERASE 207 IU/L (9-52); ALBUMIN 3.2 g/dL (3.5-5.0); ALKALINE PHOSPHATASE 74 IU/L (38-126); AMYLASE 36 IU/L (30-110); ASPARTATE AMINOTRANSFERASE 110 IU/L (14-46); BILIRUBIN,TOTAL 0.9 mg/dL (0.1-1.4); BILIRUBIN-CONJUGATED 0.3 mg/dL (0.0-0.5); BILIRUBIN-UNCONJUGATED 0.6 mg/dL (0.0-1.1); TOTAL PROTEIN 5.6 g/dL (6.3-8.2)
[2016-12-29] MEDS: ONDANSETRON DISINTEGRATING 4 MG TAB PO PRN ×2 (05:22→22:15)
[2016-12-29] MEDS: HYDROmorphONE/DILAUDID 1 MG/ML SYR IVP PRN ×5 (07:47→22:41)
[2016-12-29] MEDS: LEVONORGESTREL ETHIN ESTRADIOL PO SCH (08:35)
[2016-12-29] MEDS: DOCUSATE SODIUM 100 MG CAP PO SCH ×2 (08:36→19:39)
[2016-12-29] MEDS: PANTOPRAZOLE SODIUM 40 MG in NS 100 ML IV SCH (08:36)
--- NOTE | 2016-12-29 08:54 | SOAPPROG ---
SOSANDRA Progress Note Assessment/Plan: Assessment: Nancy is a 21yo F who is s/p uneventful lap susan for cholelithiasis and biliary dyskinesia with EF of 16% on 12/26/16 who returned to the ED yesterday 12/28/16 complaining of worsening pain. HIDA scan suggested small bowel leak AST and ALT are downtrending. Alk phos and bili remain within the normal range. Remains afebrile. Plan: NPO except meds and ice chips MRCP today to rule out choledocholithiasis Appreciate G.I Follow ALT and AST tomorrow Continue pain control Continue bowel regimen S: Nancy experienced an episode of sharp epigastric pain this morning that was relieved with dilaudid. She states that she is experiencing abdominal pain in all quadrants but is worse in the LUQ and epigastric areas. Denies passing flatus or having a bowel movement. Attempting to finish miralax. O: Drowsy, nontoxic appearing female RRR CTAB Hypoactive BS present Soft, nondistended abdomen with tenderness to palpation in all abdominal quadrants. No guarding or rigidity 3 lap incisions are covered with steri strips and are C/D/I 12/29/16 12:28 Objective: Vital Signs Temp Pulse Resp BP Pulse Ox 36.9 C 70 12 112/73 97 12/29/16 04:00 12/29/16 04:00 12/29/16 04:00 12/29/16 04:00 12/29/16 04:00 Laboratory Results 12/29/16 04:39 12/28/16 12/29/16 12/30/16 05:59 05:59 05:59 Intake Total 3238 Output Total 7370 400 Balance 978 -400 ICD10 Worksheet Patient Problems: Problems Problem Status Onset Abdominal pain Acute Diarrhea Acute
[2016-12-29] MEDS ORDERED: LEVONORGESTREL ETHIN ESTRADIOL PO SCH (09:00)
[2016-12-29] MEDS: SIMETHICONE 80 MG TAB CHEW PO SCH (09:18)
[2016-12-29] MEDS: ERTAPENEM 1 GM in NS 100 ML IV SCH (09:18)
--- NOTE | 2016-12-29 11:45 | GCON ---
[f rep st] CONSULTATION GI CONSULTATION DATE OF CONSULTATION: 12/29/2016 REASON FOR CONSULTATION: Status post laparoscopic cholecystectomy with postoperative pain. Rule out choledocholithiasis or bile duct leak. HISTORY OF PRESENT ILLNESS: The patient is a 21-year-old female, who was admitted to the hospital yesterday with epigastric abdominal pain and nausea. Two days postop from an uneventful laparoscopic cholecystectomy for cholelithiasis and biliary dyskinesia with an ejection fraction of 16%. The patient's postoperative course prior to this admission was uneventful with the exception of some mild nausea, which was thought related to narcotic use. She was readmitted to the hospital last night after acute onset of epigastric abdominal pain that moved down into her pelvis, associated with nausea and retching. She denied any jaundice, acholic stools, or dark urine. In the emergency room last night she did have a CT scan performed, which revealed intraabdominal free air, and free fluid consistent with recent cholecystectomy and laparoscopy, and proximal colonic constipation, as well as a distended urinary bladder. HIDA scan was performed thereafter, which revealed a "wisp" of radioactive tracer seen centrally, which was indeterminate for small-bowel activity versus peritoneal activity. The patient has been given Colace and MiraLAX for constipation, pantoprazole IV, and Dilaudid IV for pain on admission. She continues to have some epigastric discomfort, as well as some right upper quadrant discomfort that was more severe this morning, but has waned since that time. I was asked to see the patient by Dr. Lopez for evaluation of her pain, and for consideration of possible ERCP. The patient's mother was in the room at the time of my interview and exam, and does have a medical background, had multiple questions, which were answered today the patient's. MEDICATIONS: Prior to admission included: Nexium 40 mg daily and p.r.n. Zofran. ALLERGIES: She has no known drug allergies. PAST MEDICAL HISTORY: Significant for gastroesophageal reflux, and recent cholecystectomy for cholelithiasis, and dysfunctional gallbladder disease. SOCIAL HISTORY: She is a nonsmoker. She minimally consumes alcohol. She lives in [place]. She works as a mortgage operations manager. Her mother is a medical research clinical research analyst. Her mother lives in [place] as well her. FAMILY HISTORY: Negative for peptic ulcer disease, GI malignancies, or gallbladder disease. REVIEW OF SYSTEMS: Other than as noted in the HPI were negative for comprehensive review of systems on my examination today. PHYSICAL EXAMINATION: VITAL SIGNS: Temperature is 36.4 Celsius, pulse 65 regular, blood pressure 131/84, respiratory rate was 18, O2 saturation 98% on room air. GENERAL: Slight built female looking mildly uncomfortable in bed. INTEGUMENT: Showed no jaundice, rash, or edema. HEENT: Head atraumatic, normocephalic. Pupils equal, round, reactive to light. EOM were intact. Nares patent. Mucous membranes moist. Dentition is good. NECK: Supple. Trachea midline. PULMONARY: Lungs clear to percussion and auscultation. CARDIOVASCULAR: Regular rhythm, rate. Normal S1, S2 without murmur. Peripheral pulses strong bilaterally. No pedal edema. GI/ABDOMEN: Healing right upper quadrant trocar incision site. Tenderness in right upper quadrant with mild guarding. Positive bowel sounds. No palpable liver edge or spleen tip. No fluid wave noted. No rebound noted. EXTREMITIES: Without deformity. NEURO: The patient is alert and oriented x3. There are no focal neurologic deficits. LABS: White count 8.76, hemoglobin 11.1, hematocrit 33.5, platelets 222,008. LFTs EEG yesterday at noon showed a bilirubin of 1.1, AST of 283, ALT of 310, alkaline phosphatase of 95. Today's LFTs show a bilirubin of 0.9, AST of 110, ALT of 207, alkaline phosphatase 74. Her lipase was normal at 173. Beta hCG is negative. IMPRESSION: A 21-year-old female 3 days postoperative from uncomplicated laparoscopic cholecystectomy, now with right upper quadrant abdominal pain with questionable bile leak (equivocal findings on HIDA scan) and constipation noted on CT. I doubt that this is choledocholithiasis or significant biliary leak. RECOMMENDATIONS: 1. Would obtain an MRCP today to rule out choledocholithiasis or biliary obstruction. 2. Management of constipation with MiraLAX and Colace. 3. N.p.o. except for medications and ice chips. 4. We will perform ERCP if definitive evidence of choledocholithiasis or common bile duct obstruction found on MRCP. /[id number]/MODL MTDD
[2016-12-29] MEDS: NS W/ 20 KCl/L 1,000 ML IV SCH ×2 (12:55→22:04)
[2016-12-29] MEDS ORDERED: GADOBUTROL 10 ML VIAL IVP ONE (16:05)
[2016-12-29] MEDS ORDERED: MAG HYDROX/AL HYDROX/SIMETH 30 ML UDCUP PO PRN (17:57)
[2016-12-29] MEDS: FAMOTIDINE 20 MG TAB PO PRN (22:52)
[2016-12-30] MEDS: HYDROmorphONE/DILAUDID 1 MG/ML SYR IVP PRN ×4 (00:09→12:05)
[2016-12-30] MEDS: KETOROLAC 15 MG/1 ML SDV IVP SCH ×4 (01:02→21:54)
[2016-12-30] MEDS: ONDANSETRON 4 MG/2 ML VIAL IVP PRN ×2 (04:58→13:17)
[2016-12-30 05:18] LABS: % IMMATURE GRANULYOCYTES 0.3 % (0.0-1.1); ABSOLUTE IMMATURE GRANULOCYTES 0.03 10^3/uL (0.00-0.10); ADD DIFF? NO; ADD MORPH? NO; ADD SCAN? NO; ATYPICAL LYMPHOCYTE FLAG 0 (0-99); FRAGMENT RBC FLAG 0 (0-99); HEMATOCRIT 35.4 % (38.0-47.0); HEMOGLOBIN 11.9 g/dL (12.6-16.3); LEFT SHIFT FLG 0 (0-99); LIPEMIA HEMOLYSIS FLAG 80 (0-99); MEAN CELL HEMOGLOBIN CONCENTR. 33.6 g/dL (32.4-36.7); MEAN CELL VOLUME 86.1 fL (81.5-99.8); MEAN PLATELET VOLUME 10.4 fL (8.7-11.7); PLATELET CLUMPS FLAG 0 (0-99); PLATELET COUNT 258 10^3/uL (150-400); RED BLOOD CELL COUNT 4.11 10^6/uL (4.18-5.33); RED CELL DISTRIBUTION WIDTH 11.9 % (11.5-15.2)
[2016-12-30 05:36] LABS: ALANINE AMINOTRANSFERASE 183 IU/L (9-52); ALBUMIN 3.5 g/dL (3.5-5.0); ALKALINE PHOSPHATASE 113 IU/L (38-126); ANION GAP 12 mEq/L (8-16); ASPARTATE AMINOTRANSFERASE 69 IU/L (14-46); BILIRUBIN,TOTAL 1.3 mg/dL (0.1-1.4); CALCIUM 9.3 mg/dL (8.5-10.4); CARBON DIOXIDE 20 mEq/l (22-31); CHLORIDE 102 mEq/L (97-110); CREATININE 0.7 mg/dL (0.6-1.0); GLOMERULAR FILTRATION RATE > 60; GLUCOSE 75 mg/dL (70-100); POTASSIUM 4.4 mEq/L (3.5-5.2); SODIUM 134 mEq/L (134-144); TOTAL PROTEIN 6.2 g/dL (6.3-8.2)
[2016-12-30] MEDS: NS W/ 20 KCl/L 1,000 ML IV SCH ×2 (08:18→18:08)
[2016-12-30] MEDS: PANTOPRAZOLE SODIUM 40 MG TAB PO SCH (08:21)
[2016-12-30] MEDS: DOCUSATE SODIUM 100 MG CAP PO SCH ×2 (08:21→21:55)
[2016-12-30] MEDS: FAMOTIDINE 20 MG TAB PO PRN ×2 (08:29→21:54)
[2016-12-30] MEDS: SIMETHICONE 80 MG TAB CHEW PO SCH (08:29)
[2016-12-30] MEDS: ERTAPENEM 1 GM in NS 100 ML IV SCH (08:29)
[2016-12-30] MEDS: LEVONORGESTREL ETHIN ESTRADIOL PO SCH (08:30)
--- NOTE | 2016-12-30 11:02 | SOAPPROG ---
SOAP Progress Note Assessment/Plan: Assessment: Nancy is a 21yo F who is s/p uneventful lap susan for cholelithiasis and biliary dyskinesia with EF of 16% on 12/26/16 who returned to the ED 12/28/16 complaining of worsening pain. MRI demonstrated free fluid in the abdomen and free intraperitoneal air possibly secondary to the surgery or the bile leak suggested by the HIDA scan. AST and ALT are downtrending. Alk phos and bili remain within the normal range. Remains afebrile. Plan: Advance to light diet today Appreciate G.I Continue pain control Continue bowel regimen Dispo: to home when tolerating diet and moving bowels S: Nancy is feeling better today, she says her abdominal pain has lessened and is being well controlled. Passing flatus no bowel movement. Ready to try a light diet. O: Drowsy, nontoxic appearing female RRR CTAB BS present Soft, nondistended abdomen with tenderness to palpation in all abdominal quadrants, worse in the RUQ. No guarding or rigidity 3 lap incisions are covered with steri strips and are C/D/I 12/30/16 11:02 Objective: Vital Signs Temp Pulse Resp BP Pulse Ox 37.0 C 76 20 113/78 97 12/30/16 08:00 12/30/16 08:00 12/30/16 08:00 12/30/16 08:00 12/30/16 08:00 Laboratory Results 12/30/16 04:40 12/30/16 04:40 12/29/16 12/30/16 12/31/16 05:59 05:59 05:59 Intake Total 2361 Output Total 850 1400 Balance 1511 -1400 ICD10 Worksheet Patient Problems: Problems Problem Status Onset Abdominal pain Acute Diarrhea Acute
--- NOTE | 2016-12-30 11:45 | SOAPPROG ---
SOAP Progress Note Assessment/Plan: Assessment: 1. Post-op abdominal pain; likely secondary to combo of some free air in peritoneal space and minor post-op bile leak from liver surface (I do not think that we are dealing with true bile duct leak and no evidence of CBD stone on MRCP). 2. Constipation. Plan: 1. Laxatives PRN. 2. Pain control and ADMIR. 3. I will sign off today. Jacobo Pompa M.D. 12/30/16 11:42 Subjective: CC: Post-op abdominal pain. Interval HPI: Some improvement in abdominal pain today. No BM. Objective: Vital Signs Temp Pulse Resp BP Pulse Ox 37.0 C 76 20 113/78 97 12/30/16 08:00 12/30/16 08:00 12/30/16 08:00 12/30/16 08:00 12/30/16 08:00 Laboratory Results 12/30/16 04:40 12/30/16 04:40 12/29/16 12/30/16 12/31/16 05:59 05:59 05:59 Intake Total 2361 Output Total 850 1400 Balance 1511 -1400 Laboratory Tests 12/28/16 12/29/16 12/30/16 11:47 04:39 04:40 Total Bilirubin 1.1 0.9 1.3 AST 283 H 110 H 69 H ALT 310 H 207 H 183 H Alkaline Phosphatase 95 74 113 Physical Exam - Physical Exam General Appearance: WD/WN, alert, mild distress Respiratory: lungs clear, normal breath sounds Cardiac/Chest: normal peripheral pulses, regular rate, rhythm Abdomen: normal bowel sounds, soft (tender to palpation in RUQ.) Neuro/Psych: alert, normal mood/affect ICD10 Worksheet Patient Problems: Problems Problem Status Onset Abdominal pain Acute Diarrhea Acute
[2016-12-30] MEDS ORDERED: SIMETHICONE 80 MG TAB CHEW PO PRN (16:58)
--- NOTE | 2016-12-30 20:52 | SOAPPROG ---
SOAP Progress Note Assessment/Plan: Assessment: 22 HRS SP LAP CHANTELL/ CO RUQ PAIN/ AFEBRILE/ NONICTERIC/ABDOMEN IS SOFT WITH BOWEL SOUNDS, NONDISTENDED LFTs ELEVATED BUT BILI AND ALKPHOS OK HIDA SUGGESTS SMALL LEAK Plan:RECHECK LABS/ GI CONSULT/ POSSIBLE ERCP 12/28/16 19:27 12/30/16 20:51 CONTINUES TO IMPROVE/ AFEBRILE/ LFTs IMPROVING/ WOUNDS OK/ ABD SOFT, MINIMALLY TENDER, +BS HOME IN AM Objective: Vital Signs Temp Pulse Resp BP Pulse Ox 37 C 79 16 112/73 99 12/30/16 19:48 12/30/16 19:48 12/30/16 19:48 12/30/16 19:48 12/30/16 19:48 Laboratory Results 12/30/16 04:40 12/30/16 04:40 12/29/16 12/30/16 12/31/16 05:59 05:59 05:59 Intake Total 2361 Output Total 850 3100 Balance 1511 -3100 ICD10 Worksheet Patient Problems: Problems Problem Status Onset Abdominal pain Acute Diarrhea Acute
[2016-12-31] MEDS: KETOROLAC 15 MG/1 ML SDV IVP SCH ×2 (02:39→07:30)
[2016-12-31 04:09] VITALS: BP 111/69; O2SAT 97
[2016-12-31 08:21] VITALS: PULSE 54; RESP 14; TEMP 97.9
[2016-12-31] MEDS: LEVONORGESTREL ETHIN ESTRADIOL PO SCH (08:57)
[2016-12-31] MEDS: ERTAPENEM 1 GM in NS 100 ML IV SCH (08:59)
[2016-12-31] MEDS: DOCUSATE SODIUM 100 MG CAP PO SCH (08:59)
[2016-12-31] MEDS: SIMETHICONE 80 MG TAB CHEW PO SCH (09:00)
[2016-12-31] MEDS: PANTOPRAZOLE SODIUM 40 MG TAB PO SCH (09:01)
[2016-12-31] MEDS: ONDANSETRON DISINTEGRATING 4 MG TAB PO PRN (09:18)
--- NOTE | 2016-12-31 11:31 | SOAPPROG ---
SOAP Progress Note Assessment/Plan: Assessment: 21yo F s/p lap susan for cholelithiasis and biliary dyskinesia. Readmitted with pain, found to have small bile leak LFTs improved No evidence of CBD stone on MRCP Pain and nausea better controlled this morning. Passing flatus and having BMs Tolerating regular diet Dispo: home today. F/u 7-10d. call with any worsening symptoms, questions or concerns. avoid heavy lifting for 2 weeks S: Feeling better today. Had a BM this morning. tolerating light diet without worsening symptoms. mild nausea controlled with zofran. O: laying in bed, comfortable, NAD No increased WOB, CTAB RRR +BS, soft, nondistended, min tender. Incisions CDI without e/o infection Objective: Vital Signs Temp Pulse Resp BP Pulse Ox 36.6 C 54 L 14 111/69 97 12/31/16 08:00 12/31/16 08:00 12/31/16 08:00 12/31/16 08:00 12/31/16 08:00 Laboratory Results 12/30/16 04:40 12/30/16 04:40 12/30/16 12/31/16 01/01/17 05:59 05:59 05:59 Intake Total 2361 500 110 Output Total 850 3800 Balance 1511 -3300 110 ICD10 Worksheet Patient Problems: Problems Problem Status Onset Abdominal pain Acute Diarrhea Acute
--- NOTE | 2016-12-31 12:38 | GDS ---
[f rep st] DISCHARGE SUMMARY ADMITTING DIAGNOSIS: Epigastric pain status post laparoscopic cholecystectomy. SECONDARY DIAGNOSES: Cholelithiasis and biliary dyskinesia, reflux. REASON FOR ADMISSION: The patient is a 21-year-old woman who recently underwent uncomplicated lapar oscopic cholecystectomy for cholelithiasis and biliary dyskinesia with an EF of 16%. She was discha rged after surgery and returned to the emergency room complaining of uncontrolled epigastric abdomin al pain. She was admitted for pain control, observation, and further workup. HOSPITAL COURSE: Upon admission, she had an abdominal CT which showed constipation but no evidence of free fluid or air or abscess. She then had a HIDA scan performed which showed possible small sonja e leak from the liver bed. Then she had an MRCP which revealed free fluid and air consistent with p ostop changes. No evidence of choledochal stone. She was evaluated by Gastroenterology, who felt t hat the bile leak was minimal and would resolve spontaneously. Her symptoms did improve through her hospital stay. By hospital day #3, her pain was controlled with Toradol. She was tolerating a reg ular diet without worsening symptoms and her nausea was controlled with oral pain medication. She w as ambulating independently, and had full return of bowel function. DISCHARGE CONDITION: She is being discharged home in stable condition. Pain is controlled. Nausea is controlled. She has full return of bowel function and ambulating independently. DISCHARGE MEDICATIONS: She was sent home with prescription for Levaquin, OxyIR as well as Zofran. Please see EMR for further details on her home medications. DISCHARGE INSTRUCTIONS AND FOLLOWUP: She will follow up with Dr. Chidi Lopez in 7-10 days. She w ill call sooner with any worsening symptoms, questions, or concerns. She will follow a low-fat diet for 2 weeks. She will avoid heavy lifting, pushing, or pulling greater than 15 pounds for 2 weeks. /[id number]/MODL
== END 2016-12-31 12:04 | disposition home or self-care (01) | DRG 392 ==
LOC: F3E 14:26 → OBSVTOIN 12-29 12:51
PROVIDERS: ADMIT Surgery; ATTEND Surgery
DX: R10.13 Epigastric pain (principal); K91.89 Other postprocedural complications and disorders of digestive system; K83.8 Other specified diseases of biliary tract; K59.00 Constipation, unspecified; K21.9 Gastro-esophageal reflux disease without esophagitis; Z90.49 Acquired absence of other specified parts of digestive tract
CPT/HCPCS: 82947-QW; 96374; A9537; A9585; G0378; J1170; J1335; J1885; J2405; Q9967

== ENCOUNTER 2017-01-01 17:15 | Inpatient (IN) | payer OTHER ==
[2017-01-01] MEDS ORDERED: KETOROLAC 30 MG/1 ML SDV IVP ONE (17:34)
[2017-01-01] MEDS ORDERED: HYDROmorphONE/DILAUDID 1 MG/ML SYR IVP ONE (17:34)
[2017-01-01] MEDS ORDERED: NS 1,000 ML IV ONE ×2 (17:34)
--- NOTE | 2017-01-01 17:39 | EDPHY ---
H & P Time Seen by Provider: 01/01/17 17:22 HPI/ROS: CHIEF COMPLAINT: Severe abdominal pain HISTORY OF PRESENT ILLNESS: Patient was discharged yesterday after being rehospitalized after symptoms following cholecystectomy. She had laparoscopic surgery on December 26 for biliary dyskinesia by Dr. Chidi Lopez. She was discharged yesterday and had abdominal CT which showed constipation but no evidence of abscess. She had a HIDA scan which showed possible small bile leak but an MRCP which did not show choledochal stone. She was doing well yesterday and had fish and beans and salsa last night and had pancakes this morning but then at 8:00 a.m. after breakfast started having severe epigastric and right upper quadrant abdominal pain associated by nausea but no vomiting or diarrhea. She took oral acetaminophen as well as for oxycodone tablets and Zofran twice. Her symptoms now are severe. Do not radiate. Worse with any attempted oral intake. REVIEW OF SYSTEMS: Eye: no change in vision ENT: no sore throat Cardiac: no chest pain or syncope Pulmonary: no cough or SOB Abdomen: HPI Musculoskeletal: no back pain Skin: no rash Neuro: headache. Constitutional: no fever : no urinary symptoms A comprehensive 10 point review of systems is otherwise negative aside from elements mentioned in the history of present illness. PAST MEDICAL HISTORY: Cholecystectomy as noted in the HPI. Social history: Nonsmoker, here with both parents General Appearance: Alert and conversant, cooperative. Eyes: No scleral icterus. ENT, Mouth: Slightly dry mucous membranes but no trismus otherwise normal pharynx. Respiratory: Normal respiratory effort, breath sounds equal, lungs are clear to auscultation. Cardiovascular: Regular rate and rhythm. Gastrointestinal: Epigastric and right upper quadrant tenderness without rebound or guarding. Neurological: Alert and oriented x3. Normally conversant. Face symmetric, normal movement in all extremities. Skin: Incision with Steri-Strips are clean dry and intact. Musculoskeletal: No peripheral edema and no joint swelling. Psychiatric: Not agitated. Emergency Department course/MDM: Dilaudid 1 mg and Toradol 15 mg IV. Normal saline hydration for decreased oral intake and volume depletion. Labs to include CBC chemistry and liver function tests. She had a negative test on December 28. Call is placed to her surgeon for readmission, discussed with Prerna Lopez at [phone]. Reglan 10 mg IV. Smoking Status: Never smoked Constitutional: Initial Vital Signs Temperature (C) 36.8 C 01/01/17 17:17 Heart Rate 86 01/01/17 17:17 Respiratory Rate 18 01/01/17 17:17 Blood Pressure 112/81 H 01/01/17 17:17 O2 Sat (%) 98 01/01/17 17:17 O2 Delivery Mode Room Air Allergies/Adverse Reactions: No Known Allergies Allergy (Verified 12/28/16 11:29) Home Medications: Medication Instructions Recorded Esomeprazole Magnesium [Nexium] 20 mg PO DAILY@0800 12/22/16 Levonorgestrel-Ethin Estradiol 1 each PO DAILY 12/22/16 [Quasense 0.15-0.03 mg Tablet] Simethicone [GAS-X] 125 mg PO DAILY 12/28/16 Ondansetron Odt [Zofran Odt 4 mg 4 mg PO Q4 PRN #20 tab 12/31/16 (*)] levOFLOXACIN [Levaquin] 500 mg PO DAILY #5 tablet 12/31/16 oxyCODONE IR [Oxycodone Ir (*)] 2.5 - 5 mg PO Q4HRS PRN #10 tab 12/31/16 Medical Decision Making Differential Diagnosis: Differential considered including but not limited to postoperative abscess, intestinal perforation, bile leak, bowel obstruction, appendicitis. Consult/Admit Bed Type: [place] [id number] - Data Points Medications Given: Discontinued Medications Hydromorphone HCl (Dilaudid) 1 mg IVP EDNOW ONE Stop: 01/01/17 17:35 Last Admin: 01/01/17 18:00 Dose: 1 mg Sodium Chloride (Ns) 1,000 mls @ 0 mls/hr IV EDNOW ONE; Wide Open PRN Reason: Protocol Stop: 01/01/17 17:35 Last Admin: 01/01/17 18:00 Dose: 1,000 mls Sodium Chloride (Ns) 1,000 mls @ 0 mls/hr IV EDNOW ONE; Wide Open PRN Reason: Protocol Stop: 01/01/17 17:35 Last Admin: 01/01/17 18:00 Dose: 1,000 mls Ketorolac Tromethamine (Toradol) 15 mg IVP EDNOW ONE Stop: 01/01/17 17:35 Last Admin: 01/01/17 17:59 Dose: 15 mg Metoclopramide HCl (Reglan Injection) 10 mg IVP EDNOW ONE Stop: 01/01/17 17:49 Last Admin: 01/01/17 17:59 Dose: 10 mg Departure - Departure Disposition: [facility] Inpatient Acute Clinical Impression: Dehydration Abdominal pain Qualifiers: Abdominal location: upper abdomen, unspecified Qualified Code(s): R10.10 - Upper abdominal pain, unspecified Condition: Good
[2017-01-01 17:47] LABS: % IMMATURE GRANULYOCYTES 0.4 % (0.0-1.1); ABSOLUTE IMMATURE GRANULOCYTES 0.03 10^3/uL (0.00-0.10); ADD DIFF? NO; ADD MORPH? NO; ADD SCAN? NO; ATYPICAL LYMPHOCYTE FLAG 0 (0-99); FRAGMENT RBC FLAG 0 (0-99); HEMATOCRIT 40.2 % (38.0-47.0); HEMOGLOBIN 13.6 g/dL (12.6-16.3); LEFT SHIFT FLG 0 (0-99); LIPEMIA HEMOLYSIS FLAG 90 (0-99); MEAN CELL HEMOGLOBIN 28.8 pg (27.9-34.1); MEAN CELL HEMOGLOBIN CONCENTR. 33.8 g/dL (32.4-36.7); MEAN CELL VOLUME 85.2 fL (81.5-99.8); PLATELET CLUMPS FLAG 10 (0-99); PLATELET COUNT 367 10^3/uL (150-400); RED BLOOD CELL COUNT 4.72 10^6/uL (4.18-5.33); RED CELL DISTRIBUTION WIDTH 12.1 % (11.5-15.2)
[2017-01-01] MEDS ORDERED: METOCLOPRAMIDE 10 MG/2 ML VIAL IVP ONE (17:48)
[2017-01-01 17:59] LABS: ALANINE AMINOTRANSFERASE 142 IU/L (9-52); ALBUMIN 4.1 g/dL (3.5-5.0); ALKALINE PHOSPHATASE 152 IU/L (38-126); ANION GAP 14 mEq/L (8-16); ASPARTATE AMINOTRANSFERASE 62 IU/L (14-46); BILIRUBIN-CONJUGATED 0.6 mg/dL (0.0-0.5); BILIRUBIN-UNCONJUGATED 0.4 mg/dL (0.0-1.1); CALCIUM 9.7 mg/dL (8.5-10.4); CARBON DIOXIDE 21 mEq/l (22-31); CHLORIDE 103 mEq/L (97-110); CREATININE 0.6 mg/dL (0.6-1.0); GLOMERULAR FILTRATION RATE > 60; GLUCOSE 85 mg/dL (70-100); POTASSIUM 3.8 mEq/L (3.5-5.2); SODIUM 138 mEq/L (134-144); TOTAL PROTEIN 7.1 g/dL (6.3-8.2)
[2017-01-01] MEDS ORDERED: ONDANSETRON DISINTEGRATING 4 MG TAB PO PRN (18:25)
[2017-01-01] MEDS ORDERED: diphenhydrAMINE 25 MG CAP PO PRN (18:25)
[2017-01-01] MEDS ORDERED: oxyCODONE IR 5 MG TAB PO PRN (18:26)
[2017-01-01] MEDS ORDERED: POLYETHYLENE GLYCOL 3350 17 GM PKT PO PRN (18:27)
[2017-01-01] MEDS ORDERED: BISACODYL 10 MG SUPP PR PRN (18:27)
[2017-01-01] MEDS ORDERED: LACTULOSE 20 GM/30 ML UDCUP PO PRN (18:27)
[2017-01-01] MEDS ORDERED: MAGNESIUM HYDROXIDE 30 ML UDCUP PO PRN (18:27)
[2017-01-01] MEDS ORDERED: NS 1,000 ML IV SCH (18:30)
[2017-01-01] MEDS: SIMETHICONE 80 MG TAB CHEW PO SCH ×2 (19:51→21:47)
[2017-01-01] MEDS: PANTOPRAZOLE SODIUM 40 MG in NS 100 ML IV SCH (20:09)
[2017-01-01] MEDS: SENNOSIDES/DOCUSATE SODIUM TAB PO SCH (20:11)
--- NOTE | 2017-01-01 20:16 | GHP ---
[f rep st] HISTORY AND PHYSICAL DATE OF ADMISSION: 01/01/2017 ADMITTING DIAGNOSIS: Abdominal pain and nausea status post laparoscopic cholecystectomy. SECONDARY DIAGNOSIS: Reflux. HISTORY OF PRESENT ILLNESS: The patient is a 21-year-old woman who was taken to the operating room by Dr. Chidi Lopez on 12/26/2016 for laparoscopic cholecystectomy. Her preop diagnosis was cholel ithiasis and biliary dyskinesia with an ejection fraction of 16%. She re-presented to the hospital on postoperative day #2 complaining of worsening abdominal pain with nausea. She had a HIDA scan on 12/28/2016 which was indeterminate for a bile leak. She had an MRCP on 12/29/2016 which showed no choledocholithiasis. She was evaluated by Gastroenterology, who felt that there was no significant bile leak or common bile duct stone. Her symptoms improved over the hospital course. She had full return of bowel function and her pain was well controlled with oral pain medication. Nausea control led with Zofran. She was tolerating a regular diet. She was discharged home on 12/31/2016; however , today she developed recurrent symptoms this morning of severe right upper quadrant pain radiating around to her right upper back. This was associated with nausea, she has not had vomiting. She eric cribes the pain as spasm like, sometimes calling them similar to gas pains; however, the episodes la st for several minutes before subsiding in intensity. She does not know any triggers such as diet o r activity. She denies fever. She reports decreased appetite today. She is still passing gas and having bowel movements. In the emergency room, lab work revealed elevated alk phos. Her LFTs are t rending down since her last admission. CBC was within normal limits and electrolytes were within no rmal limits. PAST MEDICAL HISTORY: Reflux. ALLERGIES: No known drug allergies. SOCIAL HISTORY: She is a nonsmoker. Minimal alcohol intake. She works as a conventional mortgage underwriter and is accompanied by her mother, who does research analysis for clinical trials. No recreational drug us e. FAMILY HISTORY: Mother with celiac. REVIEW OF SYSTEMS: Review of systems is negative aside from the HPI. PHYSICAL EXAMINATION: GENERAL: Well-developed, well-nourished, young woman, in no acute distress, lying very still and uncomfortable with movement. HEENT: Normocephalic, atraumatic. No hearing de ficits. Pupils equal and round. No scleral icterus. Mucous membranes slightly dry. NECK: Trache a midline. RESPIRATORY: Clear to auscultation bilaterally. No increased work of breathing. CARDI OVASCULAR: Regular rate and rhythm. ABDOMEN: Bowel sounds heard throughout. Tenderness in right upper quadrant without rebound or guarding. Soft and nondistended. NEURO: Grossly intact. SKIN: Surgical incisions clean, dry, and intact without evidence of infection. PSYCHIATRIC: Mood and af fect normal. IMPRESSION AND PLAN: 21-year-old woman status post uneventful laparoscopic cholecystectomy with per sistent right upper quadrant abdominal pain and nausea. We will order a HIDA scan to be done tonigh t to evaluate for a bile leak as the previous study was indeterminate. Gastroenterology evaluation in the morning. The case was discussed with both Dr. Lopez and Dr. Chai Salgado. I reconciled her h ome medications. She will be n.p.o. for now. She and her family had all of their questions answere d to their satisfaction. /[id number]/MOD
[2017-01-01] MEDS: HYDROmorphONE/DILAUDID 1 MG/ML SYR IVP PRN (21:01)
[2017-01-01] MEDS: KETOROLAC 15 MG/1 ML SDV IVP SCH (23:31)
[2017-01-02] MEDS: ONDANSETRON 4 MG/2 ML VIAL IVP PRN ×3 (00:55→21:43)
[2017-01-02] MEDS: KETOROLAC 15 MG/1 ML SDV IVP SCH ×4 (06:24→23:47)
[2017-01-02] MEDS: HYDROmorphONE/DILAUDID 1 MG/ML SYR IVP PRN (07:30)
[2017-01-02] MEDS: PANTOPRAZOLE SODIUM 40 MG in NS 100 ML IV SCH (07:32)
[2017-01-02] MEDS: SIMETHICONE 80 MG TAB CHEW PO SCH ×4 (07:58→23:10)
[2017-01-02] MEDS: SENNOSIDES/DOCUSATE SODIUM TAB PO SCH ×2 (07:58→23:10)
[2017-01-02] MEDS ORDERED: LEVONORGESTREL ETHIN ESTRADIOL PO SCH (09:00)
[2017-01-02] MEDS ORDERED: PANTOPRAZOLE SODIUM 40 MG TAB PO SCH ×2 (09:00)
--- NOTE | 2017-01-02 10:37 | SOAPPROG ---
UNIQUE Progress Note Assessment/Plan: Assessment: Nancy is a 21yo F who is s/p lap susan on 12/26/16. Her post operative course has been complicated by recurrent RUQ pain for which she has returned to the hospital twice. HIDA scan performed 12/28/16 demonstrated a small bile leak. Abd MRI on 12/29 showed no evidence of stones. AST and ALT continue to trend down. Alk phos was elevated at 152 upon admission. Bili remains normal. Plan: Appreciate GI HIDA scan today NPO Continue pain control S: Patient says pain has improved slightly from yesterday. Still complaining of RUQ abd tenderness that radiates to her right flank/back area. Passing flatus. O: Alert and oriented, NAD. BS present RUQ abd tenderness Incisions C/D/I Normal mood and affect 01/02/17 10:28 Objective: Vital Signs Temp Pulse Resp BP Pulse Ox 36.8 C 60 16 111/64 96 01/02/17 07:55 01/02/17 07:55 01/02/17 07:55 01/02/17 07:55 01/02/17 07:55 01/01/17 01/02/17 01/03/17 05:59 05:59 05:59 Intake Total 2000 100 Output Total 400 Balance 1600 100 ICD10 Worksheet Patient Problems: Problems Problem Status Onset Abdominal pain Acute Dehydration Acute Diarrhea Acute
--- NOTE | 2017-01-02 11:03 | SOAPPROG ---
SOAP Progress Note Assessment/Plan: Assessment: CO NAUSEA AND GAGGING/ HX OF REFLUX/ AFEBRILE/ LFTs STABLE WBC 8K ABD SOFT, WOUNDS OK US - FOR SIGNIFICANT FLUID OR DUCTAL DILATION MRI - FOR DILATAION, SMALL AMOUNT OF FLUID LAST WEEK Plan:FU HIDA/ GI CONSULT/ ? ERCP 01/02/17 11:01 Objective: Vital Signs Temp Pulse Resp BP Pulse Ox 36.8 C 60 16 111/64 96 01/02/17 07:55 01/02/17 07:55 01/02/17 07:55 01/02/17 07:55 01/02/17 07:55 01/01/17 01/02/17 01/03/17 05:59 05:59 05:59 Intake Total 2000 100 Output Total 400 Balance 1600 100 ICD10 Worksheet Patient Problems: Problems Problem Status Onset Abdominal pain Acute Dehydration Acute Diarrhea Acute
--- NOTE | 2017-01-02 14:23 | GCON ---
[f rep st] CONSULTATION INPATIENT CONSULTATION REFERRING PHYSICIAN: Chidi Lopez MD REASON FOR CONSULTATION: Abdominal pain and abnormal imaging. CHIEF COMPLAINT: Abdominal pain. HISTORY OF PRESENT ILLNESS: Briefly, the patient is a 21-year-old otherwise healthy female, who was admitted to the hospital for the management of abdominal pain. She underwent laparoscopic cholecystectomy on 12/26/2016; this was in the setting of abdominal pain and presumed biliary dyskinesia. Her postoperative course was complicated by abdominal pain. There was suspicion of a small bile leak. On 12/28/2016, she underwent a HIDA scan, which revealed scint igraphic findings consistent with a bile leak, with "wisps" of radiotracer seen caudal to the right hepatic lobe. At that time, MRI was completed and did not reveal retained common bile duct stone or biliary ductal dilation. It was hoped that the patient's bile leak would resolve and she would con valescence. Unfortunately, she has had intermittent and sometimes severe abdominal pain symptoms si nce then. On 01/01/2017, she re-presented to the emergency room. Ultrasound revealed status post c holecystectomy and a small amount of fluid in the gallbladder fossa. Subsequent HIDA scan done adalberto y this morning revealed persistent bile leak; there was prompt homogeneous uptake of tracer, extrahe patic excretion in the bile tree and small bowel and uptake along the right pericolic gutter, consis tent with a leak. ALLERGIES: None. MEDICATIONS: None as an outpatient. PAST MEDICAL HISTORY: Includes reflux. PAST SURGICAL HISTORY: Recent cholecystectomy. SOCIAL HISTORY: She does not smoke, she rarely drinks alcohol. She lives in [place]. FAMILY HISTORY: Negative for peptic disease, malignancy and gallbladder disease. REVIEW OF SYSTEMS: A complete 10-system review was undertaken with the patient and is negative exce pt for those details described in the History of Present Illness. PHYSICAL EXAMINATION: GENERAL APPEARANCE: This is a thin, well-developed female in no apparent dis tress. EYES: Her pupils are equal, round, reactive to light and accommodation. Her sclerae are no nicteric. MOUTH AND THROAT: Her oropharynx is clear. NECK: Supple, without lymphadenopathy. HEA RT: Regular, without murmur. ABDOMEN: Soft but tender in the epigastrium and right upper quadrant . She has normoactive bowel sounds. EXTREMITIES: Free of cyanosis, clubbing and edema. NEURO: H er exam is grossly nonfocal. SKIN: Warm and dry, without jaundice or bruises. MUSCULOSKELETAL: H er joints show no arthritis. PSYCH: Her exam reveals normal mood and affect. LABORATORY DATA: White count of 8.4, hemoglobin of 13.6, hematocrit of 40.2, platelet count of 367. Sodium of 138, potassium of 3.8, chloride of 103, bicarb of 21. BUN of 8, creatinine of 0.6. AST of 62, ALT of 142, alkaline phosphatase of 152, albumin of 4.1, unconjugated bilirubin of 0.4, conj ugated bilirubin of 0.6. Lipase of 294. Of note, earlier in the workup of her abdominal symptoms, Helicobacter pylori antibody was negative. IMPRESSION: I suspect that the patient is having an ongoing bile leak. She had a HIDA scan showing a probable mild leak shortly postoperatively. She has had persistent abdominal symptoms, sometimes severe, and a repeat HIDA scan is also showing a bile leak. RECOMMENDATIONS: Multiple options for management were discussed with the patient and her family. T hey include continued observational care, repeat surgery, IR intervention, ERCP. Overall, I think t he risks and success are likely to be best with ERCP-guided management. Transpapillary stenosis, re tained bile duct stone or other etiologies for poor normal distal flow may be discovered and correct ed. Meanwhile the patient should remain n.p.o. The patient's questions were answered. She was with her mother and other family members. /[id number]/MODL
[2017-01-02] MEDS ORDERED: ACETAMINOPHEN 325 MG TAB PO PRN (16:28)
[2017-01-02] MEDS: levOFLOXACIN 500 MG/DEXTROSE 100 ML IV SCH (17:21)
[2017-01-02] MEDS: LEVONORGESTREL ETHIN ESTRADIOL PO SCH (17:54)
[2017-01-02] MEDS ORDERED: LR 1,000 ML IV ONE (19:06)
[2017-01-02] MEDS ORDERED: GLUCAGON,HUMAN RECOMBINANT 1 MG VIAL ONE (19:39)
[2017-01-02] MEDS ORDERED: IOTHALAMATE MEG (CONRAY) 50 ML VIAL IV ONE (19:40)
--- NOTE | 2017-01-02 20:10 | PDANEPAE ---
ANE History of Present Illness Ecrp ANE Past Medical History - Cardiovascular History Hx Hypertension: No Hx Arrhythmias: Yes Hx Chest Pain: No Hx Coronary Artery / Peripheral Vascular Disease: No Hx CHF / Valvular Disease: No Hx Palpitations: No Cardiovascular History Comment: irregular ekg. rbbb. worked up by [facility] - Pulmonary History Hx COPD: No Hx Asthma/Reactive Airway Disease: No Hx Recent Upper Respiratory Infection: No Hx Oxygen in Use at Home: No Hx Sleep Apnea: Yes Sleep Apnea Screening Result - Last Documented: Negative - Neurologic History Hx Cerebrovascular Accident: No Hx Seizures: No Hx Dementia: No - Endocrine History Hx Diabetes: No - Renal History Hx Renal Disorders: No - Liver History Hx Hepatic Disorders: No - Neurological & Psychiatric Hx Hx Neurological and Psychiatric Disorders: No - Cancer History Hx Cancer: No - Congenital Disorder History Hx Congenital Disorders: No - GI History Hx Gastrointestinal Disorders: Yes Gastrointestinal History Comment: reflux. abd pain. diarrhea currently - Other Health History Other Health History: none - Chronic Pain History Chronic Pain: No - Surgical History Prior Surgeries: pe tubes as child. wisdom teeth removed. egd's ANE Review of Systems - Exercise capacity METS (RN): 5 METS ANE Patient History - Allergies Allergies/Adverse Reactions: No Known Allergies Allergy (Verified 12/28/16 11:29) - Home Medications Home Medications: Esomeprazole Magnesium [Nexium] 20 mg PO DAILY@0800 12/22/16 [Last Taken ] Levonorgestrel-Ethin Estradiol [Quasense 0.15-0.03 mg Tablet] 1 each PO DAILY [Last Taken 01/01/17] Simethicone [GAS-X] 125 mg PO DAILY 12/28/16 [Last Taken 01/01/17] Acetaminophen [Tylenol ES 500 mg (*)] 1,000 mg PO DAILY PRN 01/01/17 [Last Taken 01/01/17] - NPO status NPO Since - Liquids (Date): 01/01/17 NPO Since - Liquids (Time): 10:00 NPO Since - Solids (Date): 01/01/17 NPO Since - Solids (Time): 10:00 - Smoking Hx Smoking Status: Never smoked - Family Anes Hx Family Hx Anesthesia Complications: none ANE Labs/Vital Signs - Labs Result Diagrams: 01/01/17 17:44 01/01/17 17:44 - Vital Signs Blood Pressure: 125/82 Heart Rate: 78 Respiratory Rate: 16 O2 Sat (%): 97 Height: 175.26 cm Weight: 53.524 kg ANE Physical Exam - Airway Neck exam: FROM Mallampati Score: Class 1 Mouth exam: normal dental/mouth exam - Pulmonary Pulmonary: no respiratory distress - Cardiovascular Cardiovascular: regular rate and rhythym - ASA Status ASA Status: II
[2017-01-02] MEDS ORDERED: MIDAZOLAM 2 MG/2 ML VIAL IVP ONE (20:11)
[2017-01-02] MEDS ORDERED: fentaNYL 100 MCG/2 ML INJ ONE ×2 (20:18→20:41)
[2017-01-02] MEDS ORDERED: PROPOFOL/EMULSION 500 MG/50 ML BOTTLE IV ONE (20:18)
[2017-01-02] MEDS ORDERED: INDOMETHACIN 50 MG SUPP PR ONE (20:37)
[2017-01-02] MEDS ORDERED: ROCURONIUM 50 MG/5 ML VIAL ONE (21:13)
[2017-01-02] MEDS ORDERED: LIDOCAINE 2% 5 ML SDV ONE (21:13)
[2017-01-02] MEDS ORDERED: GLYCOPYRROLATE 0.2 MG/1 ML VIAL ONE (21:14)
[2017-01-02] MEDS ORDERED: DEXAMETHASONE 4 MG/ML VIAL ONE (21:14)
[2017-01-02] MEDS ORDERED: SUGAMMADEX SODIUM 200 MG/2 ML VIAL IVP ONE (21:14)
[2017-01-02] MEDS ORDERED: NALOXONE HCL 0.4 MG/ML INJ IVP PRN (21:30)
[2017-01-02] MEDS ORDERED: fentaNYL 100 MCG/2 ML INJ IVP PRN (21:30)
--- NOTE | 2017-01-02 21:30 | SUROPNOTE ---
[facility] Operative Report - Surgery ERCP Indication: abd pain, abn LFTs, HIDA showing bile leak Complications: none acutely Meds: per anesthesia, Indocin 100mg ID Findings: 1. small, normal sized bile ducts 2. s/p lap susan - [address] 3. leak from area of susan clips coincident with filling of the intrahepatic biliary tree 4. ~8mm sphincterotomy done 5. 9mm balloon sweep revealed scant biliary sludge 5. 5cm x 10fr stent was too large for bile ducts, and so 5cm x 7fr stent was placed without complication IMPRESSION/RECS: 1. Bile leak, - ERCP with sphincterotomy and 5cm x 7Fr stent placement - follow LFTs and symptoms - clear liquids today - monitor for signs of post-ERCP pancreatitis - will follow, call with questions - will need ERC with stent removal in 8-12 weeks
--- NOTE | 2017-01-02 21:33 | POSTANESTH ---
Post Anesthetic Evaluation Cardiovascular Status: Normal, Stable Respiratory Status: Normal, Stable Level of Consciousness/Mental Status: Can Participate in Eval Pain Control: Adequate, Prn Tx Ordered Nausea/Vomiting Control: Adequate, Prn Tx Ordered Complications Possibly Related to Anesthesia: None Noted
[2017-01-02] MEDS ORDERED: ONDANSETRON 4 MG/2 ML VIAL ONE (21:40)
[2017-01-03] MEDS: HYDROmorphONE/DILAUDID 1 MG/ML SYR IVP PRN (00:10)
[2017-01-03] MEDS: KETOROLAC 15 MG/1 ML SDV IVP SCH ×3 (05:15→18:16)
[2017-01-03 05:22] LABS: % IMMATURE GRANULYOCYTES 0.3 % (0.0-1.1); ABSOLUTE IMMATURE GRANULOCYTES 0.02 10^3/uL (0.00-0.10); ADD DIFF? NO; ADD MORPH? NO; ADD SCAN? NO; ATYPICAL LYMPHOCYTE FLAG 0 (0-99); FRAGMENT RBC FLAG 0 (0-99); HEMATOCRIT 32.4 % (38.0-47.0); LEFT SHIFT FLG 0 (0-99); LIPEMIA HEMOLYSIS FLAG 90 (0-99); MEAN CELL HEMOGLOBIN 28.9 pg (27.9-34.1); MEAN PLATELET VOLUME 10.3 fL (8.7-11.7); PLATELET CLUMPS FLAG 0 (0-99); PLATELET COUNT 313 10^3/uL (150-400); RED BLOOD CELL COUNT 3.81 10^6/uL (4.18-5.33); RED CELL DISTRIBUTION WIDTH 11.9 % (11.5-15.2)
[2017-01-03 05:42] LABS: ALANINE AMINOTRANSFERASE 153 IU/L (9-52); ALBUMIN 3.7 g/dL (3.5-5.0); ALKALINE PHOSPHATASE 152 IU/L (38-126); ANION GAP 15 mEq/L (8-16); ASPARTATE AMINOTRANSFERASE 73 IU/L (14-46); BILIRUBIN-CONJUGATED 0.5 mg/dL (0.0-0.5); BILIRUBIN-UNCONJUGATED 0.5 mg/dL (0.0-1.1); CALCIUM 9.4 mg/dL (8.5-10.4); CARBON DIOXIDE 20 mEq/l (22-31); CHLORIDE 102 mEq/L (97-110); CREATININE 0.6 mg/dL (0.6-1.0); GLOMERULAR FILTRATION RATE > 60; GLUCOSE 89 mg/dL (70-100); POTASSIUM 4.3 mEq/L (3.5-5.2); SODIUM 137 mEq/L (134-144); TOTAL PROTEIN 6.2 g/dL (6.3-8.2)
--- NOTE | 2017-01-03 06:20 | GPN ---
[f rep st] PROCEDURE NOTE PROCEDURE: Endoscopic retrograde cholangiography. INDICATION: Bile leak, abdominal pain, and abnormal liver tests. COMPLICATIONS: None acutely. MEDICATIONS: Per Anesthesia with 100 mg of indomethacin. DESCRIPTION OF PROCEDURE: After informed consent was obtained, the patient was brought to the endos copy suite where general endotracheal tube anesthesia was administered without complication. The pa tient was then placed in the prone/swimmers position. The side-viewing duodenal scope was advanced through the mouth into the proximal duodenum. The area of the papilla was identified. It was gino l in appearance. The sphincterotome was used for wire placement into the biliary tree. Injection o f contrast revealed a bile leak. This appeared to come from the area of the cholecystectomy clips. The leak appeared coincident with the filling of the intrahepatic bile ducts. An 8 mm sphincteroto my was done with Erbe cautery. A 9-12 mm balloon was used to sweep the common bile duct starting at the confluence of the intrahepatic ducts. There was scant sludge and small amounts of biliary debr is produced. Attempts were made to advance a 5 cm x 10-English stent. The stent diameter was too la rge, and would not enter the distal bile duct. A 5 cm x 7-English stent was deployed without complic ation across the papilla. IMPRESSION AND RECOMMENDATIONS: Bile leak, ERCP with sphincterotomy, and successful placement of a 7-English stent with improved distal flow across the trans-papillary gradient. The bile leak at the cholecystectomy clips should heal. We will follow the patient's clinical course. We will need to p royce a subsequent ERCP to confirm that the leak has healed and to remove the stent. My office will blanca e in touch with the patient regarding that. The patient should be able to eat clear liquids when [place]ana feels up to it, and perhaps advance her diet tomorrow. /[id number]/MODL
[2017-01-03] MEDS: PANTOPRAZOLE SODIUM 40 MG in NS 100 ML IV SCH (08:40)
[2017-01-03] MEDS: LEVONORGESTREL ETHIN ESTRADIOL PO SCH (09:46)
[2017-01-03] MEDS: ONDANSETRON 4 MG/2 ML VIAL IVP PRN (09:46)
[2017-01-03] MEDS: SIMETHICONE 80 MG TAB CHEW PO SCH ×4 (09:47→20:08)
[2017-01-03] MEDS: SENNOSIDES/DOCUSATE SODIUM TAB PO SCH ×2 (09:47→20:08)
[2017-01-03] MEDS: levOFLOXACIN 500 MG/DEXTROSE 100 ML IV SCH (10:15)
--- NOTE | 2017-01-03 11:21 | SOAPPROG ---
SOAP Progress Note Assessment/Plan: Assessment: CO NAUSEA AND GAGGING/ HX OF REFLUX/ AFEBRILE/ LFTs STABLE WBC 8K ABD SOFT, WOUNDS OK US - FOR SIGNIFICANT FLUID OR DUCTAL DILATION MRI - FOR DILATAION, SMALL AMOUNT OF FLUID LAST WEEK Plan:FU HIDA/ GI CONSULT/ ? ERCP 01/02/17 11:01 01/03/17 11:18 MUCH MORE COMFORTABLE AFTER BILIARY STENT/ AFEBRILE/ WBC 5K/ LFTs UNCHANGED/ TOLERATING PO ABD SOFT, WOUND OK, + BS, +FLATUS PLAN ADVANCE DIET Objective: Vital Signs Temp Pulse Resp BP Pulse Ox 36.7 C 63 15 108/58 L 97 01/03/17 07:34 01/03/17 07:34 01/03/17 07:34 01/03/17 07:34 01/03/17 07:34 Laboratory Results 01/03/17 04:56 01/03/17 04:56 01/02/17 01/03/17 01/04/17 05:59 05:59 05:59 Intake Total 2390 Balance 2390 ICD10 Worksheet Patient Problems: Problems Problem Status Onset Abdominal pain Acute Dehydration Acute Diarrhea Acute
--- NOTE | 2017-01-03 12:16 | SOAPPROG ---
SOAP Progress Note Assessment/Plan: Assessment: 1. Bile Leak from cystic duct stump - s/p ERCP with [id number] stent and sphincterotomy - doing ok this AM, with less pain, no fever, but low appetite Plan: - ok to advance diet - ok to dc home once tolerating po and with good pain control - will need LFT check in 1-2 weeks - will need recall ERCP in 6-12 weeks to remove stent and confirm leak resolved (my office with arrange) - will sign off, call with questions 01/03/17 12:12 Subjective: CC: f/u s/p ERCP with stent placement for bile duct leak S: no fever no nausea low appetite no cough still with RUQ pain, but improved no diarrhea tolerating regular diet, in small amount, this AM Objective: Vital Signs Temp Pulse Resp BP Pulse Ox 36.8 C 67 18 82/64 L 96 01/03/17 11:47 01/03/17 11:47 01/03/17 11:47 01/03/17 11:47 01/03/17 11:47 Laboratory Results 01/03/17 04:56 01/03/17 04:56 01/02/17 01/03/17 01/04/17 05:59 05:59 05:59 Intake Total 2390 Balance 2390 Physical Exam - Physical Exam General Appearance: alert EENT: PERRL/EOMI, No scleral icterus (R), No scleral icterus (L) Respiratory: lungs clear Cardiac/Chest: normal peripheral pulses, regular rate, rhythm Abdomen: normal bowel sounds Skin: normal color Extremities: normal range of motion Neuro/Psych: no motor/sensory deficits ICD10 Worksheet Patient Problems: Problems Problem Status Onset Abdominal pain Acute Dehydration Acute Diarrhea Acute
[2017-01-03 17:07] VITALS: RESP 16
[2017-01-04] MEDS: KETOROLAC 15 MG/1 ML SDV IVP SCH ×3 (00:10→12:52)
[2017-01-04 08:10] VITALS: BP 107/61; PULSE 65; TEMP 98.2; O2SAT 95
[2017-01-04] MEDS: SENNOSIDES/DOCUSATE SODIUM TAB PO SCH (08:34)
[2017-01-04] MEDS: SIMETHICONE 80 MG TAB CHEW PO SCH ×2 (08:34→12:52)
[2017-01-04] MEDS: LEVONORGESTREL ETHIN ESTRADIOL PO SCH (08:35)
[2017-01-04] MEDS: levOFLOXACIN 500 MG/DEXTROSE 100 ML IV SCH (09:27)
[2017-01-04] MEDS: PANTOPRAZOLE SODIUM 40 MG in NS 100 ML IV SCH (09:28)
[2017-01-04] MEDS ORDERED: LORazepam 0.5 MG TAB PO PRN (09:57)
--- NOTE | 2017-01-04 10:47 | SOAPPROG ---
[facility] Progress Note Assessment/Plan: Assessment: Nancy is a 21yo F who is s/p lap susan on 12/26/16 who had returned to the hospital complaining of recurrent RUQ pain. ERCP with stent placement performed yesterday for small bile leak. Patient recovering well. Plan: Continue to advance diet 0.5mg Ativan for anxiety Continue PO pain medication, ibuprofen and ice packs. Dispo: to home today if tolerating diet. S: Patient says pain has improved greatly since ERCP. Anxious about the pain returning if she eats. Passing flatus, no BM yet. Denies N/V, SOB, F/C. O: Alert and oriented, NAD, slightly anxious. Abd soft, nondistended, slight tenderness BS present Incisions C/D/I Normal mood and affect Objective: Vital Signs Temp Pulse Resp BP Pulse Ox 36.8 C 65 16 107/61 95 01/04/17 08:00 01/04/17 08:00 01/04/17 08:00 01/04/17 08:00 01/04/17 08:00 Laboratory Results 01/03/17 04:56 01/03/17 04:56 01/03/17 01/04/17 01/05/17 05:59 05:59 05:59 Intake Total 2390 800 350 Balance 2390 800 350 ICD10 Worksheet Patient Problems: Problems Problem Status Onset Abdominal pain Acute Dehydration Acute Diarrhea Acute
== END 2017-01-04 15:16 | disposition home or self-care (01) | DRG 395 ==
LOC: INTOOBSV 17:44 → F3N 18:39 → OBSVTOIN 01-02 17:21 → F3E 01-03 17:04
PROVIDERS: ADMIT Surgery; ATTEND Surgery
PROC: 0F7D8DZ Dilation of Pancreatic Duct with Intraluminal Device, Via Natural or Artificial Opening Endoscopic (ICD-10-PCS; principal; 2017-01-02 19:30)
DX: K91.89 Other postprocedural complications and disorders of digestive system (principal); K83.8 Other specified diseases of biliary tract; K59.00 Constipation, unspecified; K21.9 Gastro-esophageal reflux disease without esophagitis; Z90.49 Acquired absence of other specified parts of digestive tract
CPT/HCPCS: 96374; A9537; C2625; G0378; J1100; J1170; J1610; J1885; J1956; J2250; J2405; J2704; J2765; J3010; Q9961